=== PATIENT | female | born 1965 | race Caucasian/White ===

== ENCOUNTER 2016-12-08 12:09 | Inpatient (IN) ==
--- NOTE | 2016-12-08 15:24 | CT Report ---
CT of the head without contrast. Indication: Headache. No prior studies. The cerebellar tonsils are low-lying. There is a mild partial empty sella. The ventricles are normal in size and configuration. There is no mass effect, midline shift, or area of acute hemorrhage. No cortical infarcts are seen. The calvarium is intact. Included paranasal sinuses and the mastoid air cells are clear. Impression: Cerebellar ectopia. Mild partial empty sella. The CT exam was performed using one or more of the following dose reduction techniques: Automated exposure control, adjustment of the mA and/or kV according to patient size, or use of iterative reconstruction technique. PROCEDURE INTERPRETED AT [facility] DEPARTMENT OF RADIOLOGY Final Report Signed by: Dr. Rajni Mensah
--- NOTE | 2016-12-08 15:25 | Order Completion Report ---
See report scanned to EMR
--- NOTE | 2016-12-08 15:29 | CT Report ---
CT of the abdomen and pelvis without intravenous or oral contrast. Indication: Generalized abdominal pain. Axial images were obtained with sagittal and coronal 2-D reconstructions. No previous study. The heart is normal in size. There are linear areas of atelectasis present at the lung bases. No pericardial or pleural effusion. The liver size is normal. There is no biliary ductal dilatation. There is no splenic or adrenal enlargement. No hydronephrosis. No nephrolithiasis. There is fatty replacement of the pancreas, with slight indistinctness of the pancreatic head without a discrete mass or enlargement. The pancreatic duct is not dilated. The abdominal aorta has minimal plaque. It is not dilated. The gastric contour is normal. The loops of small intestine are not dilated. There are numerous colonic diverticuli without findings of diverticulitis. No free air or free fluid. The patient is status post hysterectomy. Osseous structures are unremarkable. Impression: Diverticulosis. Basilar atelectasis. Fatty replacement of the pancreas, possible edema associated with the head of the pancreas, correlation with any signs or symptoms of pancreatitis. The CT exam was performed using one or more of the following dose reduction techniques: Automated exposure control, adjustment of the mA and/or kV according to patient size, or use of iterative reconstruction technique. PROCEDURE INTERPRETED AT [facility] DEPARTMENT OF RADIOLOGY Final Report Signed by: Dr. Rajni Mensah
--- NOTE | 2016-12-08 15:30 | XRay Report ---
Portable chest Date: 12/08/2016 Clinical history: Chest tightness Comparison: None Technique: Portable AP sitting chest Findings: The heart is normal in size with uncoiling of the aorta. Calcified granulomata/nodes with minimal atelectasis. Prior anterior cervical fusion. Degenerative changes are noted. Impression: Old healed granulomatous disease and minimal atelectasis. PROCEDURE INTERPRETED AT [facility] DEPARTMENT OF RADIOLOGY Final Report Signed by: Dr. Hedy Whatley
--- NOTE | 2016-12-08 15:32 | Emergency Department Note ---
INora Brittany, am scribing for, and in the presence of, Luz Elena Pickett DO 15: 20. IPiyush Debra, DO, personally performed the services described in this documentation, ascribed by Diane Melendez in my presence, and it is both accurate and complete 531 . Arrival - Arrival Chief Complaint: Urogenital - Female Stated Complaint: poss stroke symptoms,SOB ED Nursing Triage Note: PT WENT TO PCP THIS AM FOR HEMATURIA- PT THEN COMPLAINED OF WEAKNESS TO LEFT ARM AND SHORTNESS OF BREATH THIS AM. PT BELIEVES SHE WAS ANXIOUS ABOUT THE HEMATURIA. SENT HERE BY PCP IN [place]. ONSET OF HEMATURIA THIS AM. Mode of Arrival: Ambulatory Limitations: No Limitations Source: Patient, Family Time Seen by Provider: 12/08/16 14:42 - History of Present Illness HPI Narrative: This is a 51 y/o white female, who presents to the ED with c/o hematuria which started earlier this morning. She notes she was seen at her PCP in [place] earlier today. She notes she was SOB and left arm pain earlier today. She states her PCP thought she was having a CVA or MT, which prompted the ED visit. Pt has no other complaints/pain in the ED at this time. Pt has a PMHx of back/ pain and thyroid disorder. Pt has had a , gynecological surgery, and hysterectomy. Pt denies a family medical hx. Pt denies a social Hx. Onset (ago): hour(s) (Stated earlier this morning) Consistency: constant Severity: moderate Allergies/Adverse Reactions: Allergies Allergy/AdvReac Type Severity Reaction Status Date / Time aspirin Allergy Unknown/Unable Verified 12/08/16 12:21 to obtain Corticosteroids Allergy Unknown/Unable Verified 12/08/16 12:21 (Glucocorticoids) to obtain Erythromycin Base Allergy Unknown/Unable Verified 12/08/16 12:21 to obtain Sulfa (Sulfonamide Allergy Unknown/Unable Verified 12/08/16 12:21 Antibiotics) to obtain Review of System - Review of System Cardiovascular: Present: dyspnea on exertion Genitourinary female: Present: hematuria Medical,Surgical,& Family Hx - Medical History Endocrine: History of: Thyroid Disorder Musculoskeletal: History of: Back/Neck Problems - Surgical History Reproductive Surgeries: Surgical HX of;: Section, Gynecologic Surgery ( TUBAL ), Hysterectomy - Social History Smoking Status: Never smoker Frequency of Alcohol Use: None Type of Drug Use: None Exam Vital Signs: Vital Signs Temperature 98.0 F 12/08/16 15:12 Pulse Rate 67 12/08/16 15:12 Respiratory Rate 18 12/08/16 15:12 Blood Pressure 111/74 12/08/16 15:12 O2 Sat by Pulse Oximetry 98 12/08/16 12:13 - Eye Eye exam: Present: PERRL, EOMI. Absent: nystagmus, miosis, mydriasis - ENT ENT exam: Present: mucous membranes moist - Neck Neck exam: Present: trachea midline. Absent: tenderness - Chest Chest inspection: Present: symmetric chest wall rise. Absent: tenderness - Respiratory Respiratory exam: Present: normal lung sounds bilaterally. Absent: respiratory distress - Cardiovascular Cardiovascular exam: Present: regular rate, normal rhythm, normal heart sounds. Absent: murmur, rubs, gallop, clicks, JVD - Abdominal Exam Abdominal exam: Present: soft, tenderness (RLQ tenderness, Right flank pain ), normal bowel sounds - Rectal Exam Rectal exam: Present: deferred - Extremities Exam Extremities exam: Present: tenderness (Shoulder tenderness), normal capillary refill. Absent: pedal edema, joint swelling, calf tenderness - Back Exam Back exam: Present: full ROM. Absent: tenderness, muscle spasm, rashes - Neurological Exam Neurological exam: Present: alert, oriented X3, CN II-XII intact. Absent: motor sensory deficit - Psychiatric Psychiatric exam: Present: normal affect, normal mood. Absent: depressed, agitated, anxious, flat affect - Skin Skin exam: Present: warm, dry, intact, normal color. Absent: rash, cyanosis, diaphoresis Course Course Narrative: Patient's CT reveals an empty sella partially empty sella. Spoke to Dr. Lerma about patient's symptoms and he thinks that she needs to have an MRI and the CT results do not correlate with her symptoms. She needs to be admitted to hospitalist and he will be consulted. Patient also has a significant urinary tract infection will be treated with Rocephin down in the ER. Hospitalist notified of patient's condition which is stable and will admit patient. - Reevaluation(s) Reevaluation #1: Patient initially was unable to clearly speak this is since resolved and patient is speaking much more clearly and words intelligible Results - Labs CBC & BMP: 12/08/16 15:18 Lab Results: I have reviewed the patients labs - EKG EKG results: interpreted by ADAN POZO, sinus rhythm EKG shows: bradycardia - Diagnostic Findings Procedure: Chest x-ray: report reviewed by me (nothing acute), CT: report reviewed by me (Head CT: Cerebellar ectopia. Mild partial empty sella.) Disposition Clinical Impression: Urinary tract infection, TIA (transient ischemic attack) Case discussed with: patient Disposition: Still a Patient Condition: Stable Time of Disposition: 16:20
[2016-12-08 15:47] LABS: Basophils % 0.4 % (0.0-0.8); Eosinophils # 0.1 10*3/uL (0.0-0.87); Eosinophils % 1.3 % (0.00-10.9); Hemoglobin 12.7 GM/DL (12.0-16.0); Immature Granulocytes % 0.3 %; Immature Granulocytes Absolute 0.02 #; Lymphocytes # 2.4 10*3/uL (1.4-4.0); Lymphocytes % 31.5 % (21.3-54.2); Mean Corpuscular HGB Conc 33.4 GM/DL (32-36); Mean Corpuscular Hemoglobin 31 PG (27-34); Mean Corpuscular Volume 91.1 FL (87-102); Mean Platelet Volume 9.9 FL (9.6-12.0); Monocytes # 0.5 10*3/uL (0.11-0.8); Monocytes % 6.6 % (1.7-12.7); Neutrophils # 4.5 10*3/uL (1.4-7.4); Neutrophils % 59.9 % (38.7-73.9); Platelet Count 207 T/CUMM (130-400); Red Blood Count 4.17 MC/CUMM (3.8-5.5); Red Cell Distribution Width 13.5 % (9.3-17.3); White Blood Count 7.6 T/CUMM (4-12)
[2016-12-08 15:59] LABS: PT Patient Result 10.4 SECS; Partial Thromboplastin Time 24.3 SECS (0-40)
[2016-12-08 16:07] LABS: Apearance,Urine CLOUDY (Clear); Bilirubin,Urine Negative (Negative); Blood, Urine Large mg/dL (Negative); Glucose,Urine (UA) Negative (Negative); Ketones,Urine Negative (Negative); Nitrite,Urine Positive (Negative); Protein,Urine 100 MG/DL; RBC,Urine 674 /HPF (0-4); Urine Color Yellow (Yellow); Urine Specific Gravity 1.012 (1.001-1.035); Urine Urobilinogen < 2.0 EU/DL (0.2-1.0); WBC,Urine 159 /HPF (0-6)
[2016-12-08] MEDS ORDERED: cefTRIAXone 1,000 MG in SODIUM CHLORIDE 0.9% 100 ML IV STA (16:16)
[2016-12-08] MEDS ORDERED: cefTRIAXone 1,000 MG VIAL ONE (16:22)
[2016-12-08 16:24] LABS: Alanine Aminotransferase 18 U/L (13-56); Albumin 3.3 G/DL (3.4-5.0); Alkaline Phosphatase 86 U/L (45-117); Aspartate Amino Transferase 20 U/L (0-37); Blood Urea Nitrogen 18 MG/DL (7-18); Calcium 9.5 MG/DL (8.5-10.1); Glucose 92 MG/DL (74-106); Osmolality,Calculated 284.1 MOS/KG (273-304); Potassium 3.6 MMOL/L (3.5-5.1); Sodium 142 MMOL/L (136-145); Total Protein 7.2 G/DL (6.4-8.3); Troponin I Only < 0.015 NG/ML (0.00-0.045)
[2016-12-08] MEDS ORDERED: ACETAMINOPHEN 325 MG TABLET PO PRN (17:30)
[2016-12-08] MEDS ORDERED: ONDANSETRON 4 MG/2 ML VIAL IV PRN (17:30)
--- NOTE | 2016-12-08 17:58 | Hospitalist History & Physical ---
Assessment and Plan (1) TIA (transient ischemic attack) Status: Acute Assessment and plan: Admit to monitored bed. Numbness/tingling have resolved. Consult neuro. CT showed cerebellar ectopia. MRI ordered. Lipid panel. Frequent neuro checks. Current Visit: Yes (2) Chest pain Status: Acute Assessment and plan: Monitored bed. Serial troponins. Consult cardiology. Order tsh. Echo pending. Supplemental O2. Current Visit: Yes (3) Urinary tract infection Status: Acute Assessment and plan: Positive UA. Start pt on IV antibiotics. Current Visit: Yes (4) History of cervical spinal surgery Status: Chronic Assessment and plan: Cervical surgery in 2013. Has titanium plate in neck. Current Visit: Yes History of Present Illness Chief complaint: shortness of breath/chest pain/possible TIA History of present illness: Ms. Leahy is a 51 year old white female with a past medical history history of GERD, hypothyroidism, back pain, and past surgical history of and hysterectomy. Patient presents to the ED as referral from her PCP office in [place]. Pt. initially presented to the PCP's office for evaluation of hematuria that began earlier today around 8 am. Pt. had a hysterectomy in 2005 and was concerned about the blood because she started it was a large amount and it was coming out in clots. When pt reported to her PCP, she reports that she became short of breath and had intermittent, sharp chest pain with radiation into her neck. Pt. also reported left arm pain associated with numbness and tingling. Pt. does report having a cervical spine surgery in 2013 after a work related injury and some tingling does occur from time to time. Pt. also stated she noted changes to her speech. Pt. was sent to our facility for evaluation. CT performed reveal cerebellar ectopia and mild partial empty sella. CXR was unremarkable. UA revealed moderate leuks and positive nitrates. Pt's case has been discussed with ER physician and hospitalist Dr. Ge. Pt. will be accepted onto our service. There are no home meds available at time of this document creation to review. Allergies Allergy/AdvReac Type Severity Reaction Status Date / Time aspirin Allergy Unknown/Unable Verified 12/08/16 12:21 to obtain Corticosteroids Allergy Unknown/Unable Verified 12/08/16 12:21 (Glucocorticoids) to obtain Erythromycin Base Allergy Unknown/Unable Verified 12/08/16 12:21 to obtain Sulfa (Sulfonamide Allergy Unknown/Unable Verified 12/08/16 12:21 Antibiotics) to obtain Medical,Surgical,& Family Hx - Medical History Endocrine: History of: Thyroid Disorder Musculoskeletal: History of: Back/Neck Problems - Surgical History Reproductive Surgeries: Surgical HX of;: Section, Gynecologic Surgery ( TUBAL ), Hysterectomy - Social History Smoking Status: Former smoker Frequency of Alcohol Use: None Type of Drug Use: None Marital Status: Lives With:: Spouse Functional capacity: independent ambulation 12 point system: reviewed and no additional remarkable complaints except as stated - Cardiovascular Cardiovascular: Present: chest pain at rest, dyspnea, radiating jaw, neck or arm pain. Absent: edema - Respiratory Respiratory: Present: dyspnea. Absent: cough - Genitourinary Genitourinary: Present: hematuria. Absent: urinary frequency Exam - Constitutional Vitals: Period Temp Pulse Resp BP Sys/Mandujano Pulse Ox Last 24 Hr 98.0 F-98.0 F 50-67 18-18 111-121/68-74 98 General appearance: no acute distress, over weight - Head Head exam: Present: normal inspection, normocephalic - Eye Eye exam: Present: EOMI. Absent: scleral icterus Pupils: Present: KIMBERLY. Absent: fixed - Respiratory Respiratory exam: Present: clear to auscultation bilaterally. Absent: wheezes - Cardiovascular Cardiovascular exam: Present: regular rate and rhythm - GI/Abdominal GI/Abdominal exam: Present: normal bowel sounds, soft. Absent: tenderness - Neurological Exam Neurological exam: Present: alert, oriented X3 - Psychiatric Psychiatric exam: Present: normal affect, normal mood - Skin Skin exam: Present: normal color, warm, dry Results - Labs CBC & BMP: 12/08/16 15:18 12/08/16 15:18 Lab Results: I have reviewed the past 24 hour labs
[2016-12-08] MEDS: SODIUM CHLORIDE 0.9% 1,000 ML IV SCH (18:59)
[2016-12-08 19:00] LABS: Risk Ratio 3.81; VLDL CHOLESTEROL 23.8 MG/DL
[2016-12-08] MEDS ORDERED: PIPERACILLIN/TAZOBACTAM 3,375 MG in SODIUM CHLORIDE 0.9% 100 ML IV SCH (19:00)
[2016-12-08 21:55] LABS: Barbiturates Screen,Urine Negative (Negative); Benzodiazepines Screen,Urine Negative (Negative); Cannabinoid Screen,Urine Negative (Negative); Opiate Screen,Urine Negative (Negative); Phencyclidine Screen,Urine Negative (Negative)
[2016-12-08 22:23] LABS: Troponin I Only < 0.015 NG/ML (0.00-0.045)
[2016-12-09 05:28] LABS: Basophils % 0.8 % (0.0-0.8); Eosinophils # 0.1 10*3/uL (0.0-0.87); Eosinophils % 2.8 % (0.00-10.9); Hematocrit 34.1 VOL% (35.7-47.0); Hemoglobin 11.3 GM/DL (12.0-16.0); Immature Granulocytes Absolute 0.04 #; Lymphocytes # 1.4 10*3/uL (1.4-4.0); Lymphocytes % 34.3 % (21.3-54.2); Mean Corpuscular HGB Conc 33.1 GM/DL (32-36); Mean Corpuscular Hemoglobin 30 PG (27-34); Mean Corpuscular Volume 91.7 FL (87-102); Mean Platelet Volume 10.1 FL (9.6-12.0); Monocytes # 0.4 10*3/uL (0.11-0.8); Neutrophils # 2.1 10*3/uL (1.4-7.4); Neutrophils % 51.1 % (38.7-73.9); Platelet Count 168 T/CUMM (130-400); Red Blood Count 3.72 MC/CUMM (3.8-5.5); Red Cell Distribution Width 13.7 % (9.3-17.3)
[2016-12-09 05:59] LABS: Free T4 (Free Thyroxine) 1.02 NG/DL (0.76-1.46); Troponin I Only < 0.015 NG/ML (0.00-0.045)
[2016-12-09 06:12] LABS: Calcium 8.5 MG/DL (8.5-10.1); Osmolality,Calculated 294.4 MOS/KG (273-304); Potassium 4.1 MMOL/L (3.5-5.1); Thyroid Stimulating Hormone 2.24 uIU/ml (0.358-3.74)
[2016-12-09] MEDS: PANTOPRAZOLE 40 MG TABLET PO SCH ×2 (07:48→08:12)
[2016-12-09] MEDS: LEVOTHYROXINE 75 MCG TABLET PO SCH (07:48)
[2016-12-09] MEDS: SODIUM CHLORIDE 0.9% 1,000 ML IV SCH ×2 (07:49→20:37)
--- NOTE | 2016-12-09 10:23 | Magnetic Resonance Report ---
Exam: MR head/brain wo con Date: 12/09/2016 5:30 PM Comparison: CT brain August 08, 2016 Indication: Left arm weakness weakness with abnormal speech and abnormal CT brain Technique:[Multiple acquisitions were obtained including sagittal T1, coronal T2, and axial ADC, diffusion, FLAIR, T2, GRE, and T1 scans without contrast only. Scans were obtained on a 1.5 Vianey magnet.] Findings: The ventricles remain normal in size with no midline displacement. Minimal cerebellar ectopia and partially empty sella. No acute infarction is identified in the diffusion scans. No evidence of hemorrhage, mass, or extracerebral collection. No acute findings in the paranasal sinuses, orbits, temporal bones, or anvik of Lozano. Impression: No acute intracranial pathology identified. Partially empty sella with minimal cerebellar ectopia. PROCEDURE INTERPRETED AT [facility] DEPARTMENT OF RADIOLOGY Final Report Signed by: Dr. Hedy Whatley
--- NOTE | 2016-12-09 12:43 | Hospitalist Progress Note ---
Assessment and Plan (1) Chest pain Status: Acute Assessment and plan: CXR showed an old healed granulomatous disease and minimal atelectasis.Cardiac enzymes are negative. Cardiology is follow. Echo is pending Current Visit: Yes (2) Urinary tract infection Status: Acute Assessment and plan: UC grew gram negative rods Continue with IV antibiotics, follow BC and sensitivities Current Visit: Yes (3) History of cervical spinal surgery Status: Chronic Assessment and plan: most likely causing occasional numbness and tingling of the hands. Appears stable, symptoms have resolved Current Visit: Yes (4) Hypothyroidism Status: Acute Assessment and plan: continue with supplements Current Visit: Yes (5) Empty sella Status: Acute Assessment and plan: MRI showed No acute intracranial pathology identified. Partially empty sella with minimal cerebellar ectopia. Neurology to see Current Visit: Yes Hospitalist: Subjective Interval history: Patient seen in the room with Hobby.MRI of the brain showed no acute intracranial pathology but showed a partially empty sella with minimal cerebellar ectopia. Patient states she is chest pain free and no longer SOB. Her tingling and numbness have also resolved. She was concerned about a some diffuse pinpoint hemorrhagic skin lesions on her abdomen that have been present for years. Exam - Constitutional Vitals: Period Temp Pulse Resp BP Sys/Mandujano Pulse Ox Last 24 Hr 97.4 F-98.0 F 50-72 18-20 90-132/55-81 92-98 General appearance: no acute distress - Head Head exam: Present: normal inspection - Respiratory Respiratory exam: Present: clear to auscultation bilaterally - Cardiovascular Cardiovascular exam: Present: regular rate and rhythm - GI/Abdominal GI/Abdominal exam: Present: normal bowel sounds, other (diffuse pinpoint hemorrhagic skin lesions) - Extremities Exam Extremities exam: Present: normal inspection Results - Labs CBC & BMP: 12/09/16 04:57 12/09/16 04:57
[2016-12-09] MEDS ORDERED: ENOXAPARIN 40 MG/0.4 ML SYRINGE SUBCUT SCH (13:00)
--- NOTE | 2016-12-09 13:29 | Neurology Consult Note ---
History of Present Illness History of present illness: Ms. Leahy is a 51 year old right-handed white with a past medical history history of GERD, hypothyroidism, back pain, history of cervical disc disease status post neck surgery done by Dr. Mcconnell and past surgical history of C- section and hysterectomy. Patient presents to the ED as referral from her PCP office in [place]. Pt. initially presented to the PCP's office for evaluation of hematuria that began earlier yesterday around 8 am. Pt. had a hysterectomy in 2005 and was concerned about the blood because she started it was a large amount and it was coming out in clots. When pt reported to her PCP, she reports that she became short of breath and had intermittent, sharp chest pain with radiation into her neck. Pt. also reported left arm pain associated with numbness and tingling. Pt. does report having a cervical spine surgery in 2013 after a work related injury and some tingling does occur from time to time. MRI of the brain revealed no acute abnormalities, mild cerebellar ectopia and partial empty sella. Patient reported no headaches or vision difficulties. Home Medications Medication Instructions Recorded Confirmed Type Cholecalciferol (Vitamin D3) 1 tablet PO DIRECTED 12/08/16 12/08/16 History [Vitamin D3] Cholecalciferol (Vitamin D3) 1 tablet PO DIRECTED 12/08/16 12/08/16 History [Vitamin D3] Pregabalin [Lyrica] 150 mg PO BID 12/08/16 12/08/16 History Diclofenac Sodium [Diclofenac 100 mg PO DAILY PRN 12/09/16 12/09/16 History Sodium ER] Levothyroxine Tab [Synthroid Tab] 75 mcg PO DAILY@0700 12/09/16 12/09/16 History Allergies Allergy/AdvReac Type Severity Reaction Status Date / Time aspirin Allergy Unknown/Unable Verified 12/08/16 12:21 to obtain Corticosteroids Allergy Unknown/Unable Verified 12/08/16 12:21 (Glucocorticoids) to obtain Erythromycin Base Allergy Unknown/Unable Verified 12/08/16 12:21 to obtain Sulfa (Sulfonamide Allergy Unknown/Unable Verified 12/08/16 12:21 Antibiotics) to obtain 12 point system: reviewed and no additional remarkable complaints except as stated Medical,Surgical,& Family Hx - Medical History Psychological: History of: Anxiety Disorders Neurology: No history of: Brain Aneurysm, Cerebral Hemorrhage, Cerebrovascular Accident , Cerebral Palsy, Dementia, Migraine, Multiple Sclerosis, Parkinson's Disease, Peripheral Neuropathy, Seizures, TIA, Vertigo, Neurologocal Cancer Endocrine: History of: Thyroid Disorder Musculoskeletal: History of: Back/Neck Problems - Surgical History Neurologic Surgeries: Surgical HX of: Neurologic Surgery (cervical fusion) Patient denies: Brain Aneurysm, Cerebral Hemorrhage Reproductive Surgeries: Surgical HX of;: Section, Gynecologic Surgery ( TUBAL ), Hysterectomy - Family History Family History: Reports;: Family Cancer, Family Heart Disease - Social History Smoking Status: Smoker, status unknown Frequency of Alcohol Use: None Type of Drug Use: None Exam - Constitutional Vitals: Period Temp Pulse Resp BP Sys/Mandujano Pulse Ox Last 24 Hr 97.4 F-98.0 F 50-72 18-20 90-132/55-81 92-98 Exam: GENERAL: Patient is in no acute distress. NECK: Neck is supple. There is no JVD. No carotid bruits present. No thyroid masses. CVS: First and second heart sounds are normal. There is no S3 present. Regular rate and rhythm. RESPIRATORY: Lungs are clear to auscultation without any rales or rhonchi. ABDOMEN: Soft and non-tender. Bowel sounds are present. There is no hepatosplenomegaly. EXT: There is no palpable edema. Peripheral pulses are present. Skin: No rashes Central Nervous system: General: Alert, awake and Oriented x 3 Speech: Fluent Comprehension: Intact and normal Facial expressions: Normal Cranial Nerves: CN1/Olfactory: Normal CN II/ Optic: Normal, Visual Taylor unreliable CN III, and : KIMBERLY & EOMI CN V: Normal & intact CN VII: face is symmetric CNVIII: Normal CN XI/X/XI/XII: Intact and Normal Motor: Bulk and Tone is normal. Strength in the right 5/5 Strength in the left 5/5 Sensory: Grossly intact for all the modalities of PP, LT and temp sense Reflexes: 1+ and symmetrical Cerebellar function: Normal finger to nose and heel to douglas testing. Toes: Equivocal Gait: Normal heel to heel and toe to toe and tandem walk. Results - Labs CBC & BMP: 12/09/16 04:57 12/09/16 04:57 Assessment and Plan (1) Numbness of left hand Status: Acute Assessment and plan: This is likely due to the residual of cervical surgery. No evidence of stroke on the MRI. Partial empty sella is asymptomatic but I have recommended her to go back and see Dr. Mcconnell regarding cerebellar ectopia. Patient voiced understanding of everything. No further intervention/recommendations from neuro standpoint Sign off please call as needed Current Visit: Yes
--- NOTE | 2016-12-09 15:33 | Cardiology Consult Note ---
I, Melly Larsen RN, am scribing for, and in the presence of, Antoni Green MD 15:25. Assessment and Plan - Time spent with patient Time spent with patient: Greater than 30 minutes (Due to assessment, planning, documentation, medication review) (1) Numbness of left hand Status: Acute Assessment and plan: The left hand numbness and even the left chest pain, which is better with pressing on her left chest, could be coronary disease, but so far is not for sure. A call also could be muscle skeletal, related her C-spine disease, or GI related Plan/recommendations: an echo/Doppler was ordered-I will review that test. in the Course of her original evaluation her admitting hospitalist deem it necessary to do an echo. It was ordered. I will review it. Aspirin 1 daily, 81 mg-patient says she cannot, she is allergic I SSRI trial-because of some easy anxiety-sertraline 25 mg one half now nightly 7 days then 1 nightly Elevate legs greater than heart, 10 minutes, 2 times per day For chest wall pain will use: Tramadol 50 mg p.o. twice daily, Tylenol 3 25 mg p.o. twice daily. She is already on Lyrica, will continue. She sees a pain doctor, Dr. Joseph Pickett, in [place]. I have encouraged her to continue following up with him to help with management When she is discharged, I would set up for an outpatient stress test/Cardiolite at my office. At this point, he does not need to be done here. Thank you for allowing me to participate in this patient's care I discussed my thoughts and plans with the patient and her .. They understand and agree with the plans. 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 Leahy is a 51 year old female who has never been seen by drier tender. She denies ever having had a heart catheterization or stress testing. She has a history of thyroid problems as well as neck problems. She has had surgery for fusion of cervical disc. Ms. Leahy reported to her primary care doctor yesterday for hematuria. While she was there she became dizzy and short of breath. She believes this was related to her being anxious about the hematuria, but her PCP encouraged her to present to the emergency department for further evaluation. She later developed sharp chest pain on the left side of her chest that she said radiated down her left arm. She rates it a 2 on a scale of 1-10. She said she always has trouble with her speech and yesterday she did note some changes to her speech. She had numbness and tingling down her left arm, she says this does occur from time to time since her cervical spine surgery. She did say yesterday it was worse than normal. She also reports being fatigued recently. Cardiac biomarkers have been negative 3. EKG indicated sinus bradycardia with heart rate of 53. She is scheduled for MRI of the brain today. Ms. Leahy is seen resting in bed no acute distress. She denies any chest pain , shortness of breath, palpitations, or dizziness at this time. She does continue to have some tingling and numbness to her left arm. She has had an echocardiogram as well as MRI of the brain this morning. Image monitor currently shows sinus bradycardia with heart rates in the 50s. CC: Merlyn Barnhart MD - Home Medications and Allergies Home Medications: Home Medications Medication Instructions Recorded Confirmed Type Cholecalciferol (Vitamin D3) 1 tablet PO DIRECTED 12/08/16 12/08/16 History [Vitamin D3] Cholecalciferol (Vitamin D3) 1 tablet PO DIRECTED 12/08/16 12/08/16 History [Vitamin D3] Pregabalin [Lyrica] 150 mg PO BID 12/08/16 12/08/16 History Diclofenac Sodium [Diclofenac 100 mg PO DAILY PRN 12/09/16 12/09/16 History Sodium ER] Levothyroxine Tab [Synthroid Tab] 75 mcg PO DAILY@0700 12/09/16 12/09/16 History Allergies/Adverse Reactions: Allergies Allergy/AdvReac Type Severity Reaction Status Date / Time aspirin Allergy Unknown/Unable Verified 12/08/16 12:21 to obtain Corticosteroids Allergy Unknown/Unable Verified 12/08/16 12:21 (Glucocorticoids) to obtain Erythromycin Base Allergy Unknown/Unable Verified 12/08/16 12:21 to obtain Sulfa (Sulfonamide Allergy Unknown/Unable Verified 12/08/16 12:21 Antibiotics) to obtain - Constitutional Constitutional: Present: as per HPI - EENT Eyes: Present: requires corrective lense. Absent: blurry vision Ears: Absent: decreased hearing, ear pain Nose, mouth and throat: Present: neck pain. Absent: dysphagia, epistaxis, headache(s) - Cardiovascular Cardiovascular: Present: chest pain at rest, dyspnea, dyspnea on exertion, edema , radiating jaw, neck or arm pain, lightheadedness. Absent: diaphoresis, orthopnea - Respiratory Respiratory: Present: dyspnea, dyspnea on exertion. Absent: cough, wheezing - Gastrointestinal Gastrointestinal: Present: constipation. Absent: abdominal pain, diarrhea, hematemesis, hematochezia, melena, nausea, vomiting - Genitourinary Genitourinary: Present: hematuria. Absent: dysuria - Endocrine Endocrine: Present: fatigue Medical,Surgical,& Family Hx - Medical History Psychological: History of: Anxiety Disorders Endocrine: History of: Thyroid Disorder Musculoskeletal: History of: Back/Neck Problems - Surgical History Neurologic Surgeries: Surgical HX of: Neurologic Surgery (cervical fusion) Reproductive Surgeries: Surgical HX of;: Section, Gynecologic Surgery ( TUBAL ), Hysterectomy - Family History Family History: Reports;: Family Cancer, Family Heart Disease - Social History Smoking Status: Former smoker (Quit 20 years ago) Have you smoked in the last 12 months: No Frequency of Alcohol Use: None Type of Drug Use: None Marital Status: Lives With:: Spouse Functional capacity: independent ambulation Physical Examination Vital Signs Temp Pulse Resp BP Pulse Ox 98.0 F 67 18 111/74 98 12/08/16 12:13 12/08/16 12:13 12/08/16 12:13 12/08/16 12:13 12/08/16 12:13 General: Present: Appears Well, No Apparent Distress HEENT: Present: PERRL, Mucus Membranes Moist Neck: Present: Supple Neck, Midline Trachea, No Bruit Cardiac: Present: Reg Rate and Rhythm, No Murmur Lungs: Present: Normal Breath Sounds, No Wheeze, Rales, Rhonchi Neuro: Present: Numbness, Tingling. Absent: Resting Tremor, Essential Tremor Abdomen: Present: Soft, Active Bowel Sounds, Non-Tender. Absent: Distended Skin: Absent: Rash, Suspicious Lesions Extremities: Present: Normal Upper Extr. Pulses, Normal Lower Extr. Pulses, +1 Edema (To bilateral lower extremities) Result/EKG - Labs CBC & BMP: 12/09/16 04:57 12/09/16 04:57 Lab Results: I have reviewed the past 24 hour labs Labs: Laboratory Results - last 24 hr 12/08/16 12/08/16 12/08/16 15:18 15:18 15:18 WBC 7.6 RBC 4.17 Hgb 12.7 Hct 38.0 MCV 91.1 MCH 31 MCHC 33.4 RDW 13.5 Plt Count 207 MPV 9.9 Neut % (Auto) 59.9 Lymph % (Auto) 31.5 [place] % (Auto) 6.6 Eos % (Auto) 1.3 Baso % (Auto) 0.4 Neut # (Auto) 4.5 Lymph # (Auto) 2.4 [place] # (Auto) 0.5 Eos # (Auto) 0.1 Baso # (Auto) 0.0 Immature Gran % 0.3 Nucleated RBC % 0.0 Immature Gran # 0.02 Nucleated RBCs # 0.00 Immature Plt Fraction 0.0 INR 1.0 PT Patient/Control Mix 10.4 Circ Anticoag PTT 24.3 Sodium 142 Potassium 3.6 Chloride 107 Carbon Dioxide 28 Anion Gap 10.6 BUN 18 Creatinine 1.00 GFR Calculation 71 BUN/Creatinine Ratio 18.00 Glucose 92 Hemoglobin A1c Calculated Osmolality 284.1 Calcium 9.5 Magnesium Total Bilirubin 0.40 AST 20 ALT 18 Alkaline Phosphatase 86 Total Creatine Kinase 211 H CK-MB (CK-2) 2.8 Troponin I < 0.015 Total Protein 7.2 Albumin 3.3 L Globulin 3.9 H Albumin/Globulin Ratio 0.8 L Triglycerides Cholesterol LDL Cholesterol VLDL Cholesterol HDL Cholesterol Heart Disease Risk Ratio Lipase Free T4 TSH 3rd Generation Urine Color Urine Appearance Urine pH Ur Specific [place] Urine Protein Urine Glucose (UA) Urine Ketones Urine Blood Urine Nitrate Urine Bilirubin Urine Urobilinogen Urine Leukocytes Urine RBC Urine WBC Urine WBC Clumps Ur Culture Indicated? Urine Opiates Screen Ur Barbiturates Screen Ur Phencyclidine Scrn U Amphetamine/Methamph U Benzodiazepines Scrn U Cocaine Metab Screen U Cannabinoids Screen 12/08/16 12/08/16 12/08/16 15:18 15:18 15:18 WBC RBC Hgb Hct MCV MCH MCHC RDW Plt Count MPV Neut % (Auto) Lymph % (Auto) [place] % (Auto) Eos % (Auto) Baso % (Auto) Neut # (Auto) Lymph # (Auto) [place] # (Auto) Eos # (Auto) Baso # (Auto) Immature Gran % Nucleated RBC % Immature Gran # Nucleated RBCs # Immature Plt Fraction INR PT Patient/Control Mix Circ Anticoag PTT Sodium Potassium Chloride Carbon Dioxide Anion Gap BUN Creatinine GFR Calculation BUN/Creatinine Ratio Glucose Hemoglobin A1c Calculated Osmolality Calcium Magnesium Total Bilirubin AST ALT Alkaline Phosphatase Total Creatine Kinase CK-MB (CK-2) Troponin I Total Protein Albumin Globulin Albumin/Globulin Ratio Triglycerides 119 Cholesterol 183 LDL Cholesterol 110.0 VLDL Cholesterol 23.8 HDL Cholesterol 48 Heart Disease Risk Ratio 3.81 Lipase 205.0 Free T4 TSH 3rd Generation Urine Color Yellow Urine Appearance Cloudy Urine pH 6.0 Ur Specific [place] 1.012 Urine Protein 100 Urine Glucose (UA) Negative Urine Ketones Negative Urine Blood Large Urine Nitrate Positive H Urine Bilirubin Negative Urine Urobilinogen < 2.0 H Urine Leukocytes Moderate H Urine RBC 674 Urine WBC 159 Urine WBC Clumps Many Ur Culture Indicated? Results to follow Urine Opiates Screen Ur Barbiturates Screen Ur Phencyclidine Scrn U Amphetamine/Methamph U Benzodiazepines Scrn U Cocaine Metab Screen U Cannabinoids Screen 12/08/16 12/08/16 12/08/16 15:18 15:18 21:37 WBC RBC Hgb Hct MCV MCH MCHC RDW Plt Count MPV Neut % (Auto) Lymph % (Auto) [place] % (Auto) Eos % (Auto) Baso % (Auto) Neut # (Auto) Lymph # (Auto) [place] # (Auto) Eos # (Auto) Baso # (Auto) Immature Gran % Nucleated RBC % Immature Gran # Nucleated RBCs # Immature Plt Fraction INR PT Patient/Control Mix Circ Anticoag PTT Sodium Potassium Chloride Carbon Dioxide Anion Gap BUN Creatinine GFR Calculation BUN/Creatinine Ratio Glucose Hemoglobin A1c 5.8 Calculated Osmolality Calcium Magnesium Total Bilirubin AST ALT Alkaline Phosphatase Total Creatine Kinase 170 CK-MB (CK-2) 2.4 Troponin I < 0.015 Total Protein Albumin Globulin Albumin/Globulin Ratio Triglycerides Cholesterol LDL Cholesterol VLDL Cholesterol HDL Cholesterol Heart Disease Risk Ratio Lipase Free T4 TSH 3rd Generation Urine Color Urine Appearance Urine pH Ur Specific [place] Urine Protein Urine Glucose (UA) Urine Ketones Urine Blood Urine Nitrate Urine Bilirubin Urine Urobilinogen Urine Leukocytes Urine RBC Urine WBC Urine WBC Clumps Ur Culture Indicated? Urine Opiates Screen Negative Ur Barbiturates Screen Negative Ur Phencyclidine Scrn Negative U Amphetamine/Methamph Negative U Benzodiazepines Scrn Negative U Cocaine Metab Screen Negative U Cannabinoids Screen Negative 12/09/16 12/09/16 12/09/16 04:57 04:57 04:57 WBC 4.0 D RBC 3.72 L Hgb 11.3 L Hct 34.1 L MCV 91.7 MCH 30 MCHC 33.1 RDW 13.7 Plt Count 168 MPV 10.1 Neut % (Auto) 51.1 Lymph % (Auto) 34.3 [place] % (Auto) 10.0 Eos % (Auto) 2.8 Baso % (Auto) 0.8 Neut # (Auto) 2.1 Lymph # (Auto) 1.4 [place] # (Auto) 0.4 Eos # (Auto) 0.1 Baso # (Auto) 0.0 Immature Gran % 1.0 Nucleated RBC % 0.0 Immature Gran # 0.04 Nucleated RBCs # 0.00 Immature Plt Fraction 0.0 INR PT Patient/Control Mix Circ Anticoag PTT Sodium 147 H Potassium 4.1 Chloride 112 H Carbon Dioxide 28 Anion Gap 11.1 BUN 21 H Creatinine 0.80 GFR Calculation 93 BUN/Creatinine Ratio 26.00 H Glucose 94 Hemoglobin A1c Calculated Osmolality 294.4 Calcium 8.5 Magnesium 2.0 Total Bilirubin AST ALT Alkaline Phosphatase Total Creatine Kinase 142 CK-MB (CK-2) 2.2 Troponin I < 0.015 Total Protein Albumin Globulin Albumin/Globulin Ratio Triglycerides Cholesterol LDL Cholesterol VLDL Cholesterol HDL Cholesterol Heart Disease Risk Ratio Lipase Free T4 1.02 TSH 3rd Generation 2.240 Urine Color Urine Appearance Urine pH Ur Specific [place] Urine Protein Urine Glucose (UA) Urine Ketones Urine Blood Urine Nitrate Urine Bilirubin Urine Urobilinogen Urine Leukocytes Urine RBC Urine WBC Urine WBC Clumps Ur Culture Indicated? Urine Opiates Screen Ur Barbiturates Screen Ur Phencyclidine Scrn U Amphetamine/Methamph U Benzodiazepines Scrn U Cocaine Metab Screen U Cannabinoids Screen - Diagnostic Findings Procedure: Chest x-ray: report reviewed by me - EKG EKG results: interpreted by me EKG shows: bradycardia, sinus rhythm Specialty Discharge - Follow Up or Referrals Follow up with: Antoni Green MD [Physician] - (Upon discharge, please set her up for my office at [facility] to have a treadmill test with Cardiolite within the next week or so. And have her see me back about 1 week after the treadmill for a clinic appointment) I, Antoni Green MD, personally performed the services described in this documentation, ascribed by Melly Larsen RN in my presence, and it is both accurate and complete 525 .
--- NOTE | 2016-12-09 17:33 | Order Completion Report ---
See report scanned to EMR
[2016-12-09] MEDS: PREGABALIN 75 MG CAPSULE PO SCH (20:38)
[2016-12-10 05:16] LABS: Basophils % 0.7 % (0.0-0.8); Eosinophils # 0.1 10*3/uL (0.0-0.87); Eosinophils % 1.8 % (0.00-10.9); Hematocrit 33.9 VOL% (35.7-47.0); Hemoglobin 11.2 GM/DL (12.0-16.0); Immature Granulocytes % 0.5 %; Immature Granulocytes Absolute 0.02 #; Lymphocytes # 1.8 10*3/uL (1.4-4.0); Lymphocytes % 40.7 % (21.3-54.2); Mean Corpuscular Hemoglobin 31 PG (27-34); Mean Corpuscular Volume 92.6 FL (87-102); Mean Platelet Volume 9.9 FL (9.6-12.0); Monocytes # 0.3 10*3/uL (0.11-0.8); Monocytes % 7.2 % (1.7-12.7); Neutrophils # 2.2 10*3/uL (1.4-7.4); Neutrophils % 49.1 % (38.7-73.9); Platelet Count 173 T/CUMM (130-400); Red Blood Count 3.66 MC/CUMM (3.8-5.5); White Blood Count 4.4 T/CUMM (4-12)
[2016-12-10 05:52] LABS: Calcium 8.6 MG/DL (8.5-10.1); Osmolality,Calculated 287.8 MOS/KG (273-304); Potassium 4.3 MMOL/L (3.5-5.1)
[2016-12-10] MEDS: LEVOTHYROXINE 75 MCG TABLET PO SCH (06:04)
[2016-12-10] MEDS: PREGABALIN 75 MG CAPSULE PO SCH (09:07)
[2016-12-10] MEDS: PANTOPRAZOLE 40 MG TABLET PO SCH (09:07)
[2016-12-10] MEDS: SODIUM CHLORIDE 0.9% 1,000 ML IV SCH (09:12)
[2016-12-10 09:47] VITALS: BP 104/69
--- NOTE | 2016-12-10 12:24 | Discharge Summary ---
<Sixto Bach - Last Filed: 12/10/16 12:21> Hospital Course - Hospital Course Hospital Course: Ms. Leahy is a 51 year old white female with a past medical history of GERD, hypothyroidism, back pain, and past surgical history of and hysterectomy. Patient presented to the ED on 12/08 as a referral from her PCP office in [place]. Pt. initially presented to the PCP's office for evaluation of hematuria that began earlier today around 8 am. Pt. had a hysterectomy in 2005 and was concerned about the blood because she started it was a large amount and it was coming out in clots. When pt reported to her PCP, she became short of breath and had intermittent, sharp chest pain with radiation into her neck. Pt. also reported left arm pain associated with numbness and tingling. Pt. does report having a cervical spine surgery in 2013 after a work related injury and some tingling does occur from time to time. Pt. also stated she noted changes to her speech. Pt. was sent to our facility for evaluation. CT performed reveal cerebellar ectopia and mild partial empty sella. CXR was unremarkable. UA revealed moderate leuks and positive nitrates. Pt. was admitted for further evaluation of abnormal CT and UTI. Pt. was started on IV fluids and given Rocephin IV for treatment of UTI. She was evaluated by Neurology and Cardiology. Neurology evaluated patient for abnormal CT. MRI was ordered and was unremarkable. Neurology recommended pt. seeing Dr. 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 He felt the numbess was residual from past cervical surgery. Cardiology evaluated pt. EF noted at 60%. They recommended she follow up with her pain doctor in [place]. Chest wall pain suspected to be possibly musculoskeletal or GI related. Also recommended possible start of SSRI for anxiety. Patient will be set up for an outpatient stress test is a later date. Pt.'s condition continued to improve and she is stable for discharge today. Prescription for Levaquin has been written for her E.Coli UTI. she will follow with PCP in 1week. was very unkind to everyone in the hospital and was very controlling to the patient. - Time spent with patient Time with patient DS: Greater than 30 minutes Diagnosis - Discharge Diagnosis (1) TIA (transient ischemic attack) Status: Resolved (2) Chest pain Status: Resolved (3) Urinary tract infection Status: Acute (4) History of cervical spinal surgery Status: Chronic Specialty Discharge - Follow Up or Referrals Follow up with: Antoni Green MD [Physician] - 12/24/16 1:30 pm (Patient will have stress test on 12/17/16@12:45) - Speciality Discharge Instructions Pain Management Instructions: Follow up with Dr. Joseph Pickett, in [place]. Discharge Plan - Discharge Data Disposition: Disch To Home/Self Care Condition at Discharge: Stable Discharge Diet: advance to your usual diet Activity: resume usual activities as tolerated Hygiene: no restrictions Driving: no restrictions - Discharge Medications New Levofloxacin Tab [Levaquin Tab] 750 mg PO DAILY #7 tablet Continue Cholecalciferol (Vitamin D3) [Vitamin D3] 1 tablet PO DIRECTED Cholecalciferol (Vitamin D3) [Vitamin D3] 1 tablet PO DIRECTED Levothyroxine Tab [Synthroid Tab] 75 mcg PO DAILY@0700 Pregabalin [Lyrica] 150 mg PO BID Diclofenac Sodium [Diclofenac Sodium ER] 100 mg PO DAILY PRN PRN Reason: Pain - Follow Up or Referral Follow Up: Antoni Green MD [Physician] - 12/24/16 1:30 pm (Patient will have stress test on 12/17/16@12:45) - Forms/Instructions Exam - Constitutional Vitals: Period Temp Pulse Resp BP Sys/Mandujano Pulse Ox Last 24 Hr 96.5 F-98.0 F 50-90 16-20 96-127/64-74 94-99 General appearance: no acute distress, over weight - Head Head exam: Present: normal inspection, normocephalic - Eye Eye exam: Present: EOMI Pupils: Present: KIMBERLY - Respiratory Respiratory exam: Present: clear to auscultation bilaterally. Absent: wheezes - Cardiovascular Cardiovascular exam: Present: regular rate and rhythm - GI/Abdominal GI/Abdominal exam: Present: normal bowel sounds, soft. Absent: tenderness - Extremities Exam Extremities exam: Present: normal inspection, normal capillary refill, full ROM. Absent: edema - Neurological Exam Neurological exam: Present: alert, oriented X3 - Psychiatric Psychiatric exam: Present: anxious (pt's was being verbally aggressive to her on phone during encounter) - Skin Skin exam: Present: normal color, warm, dry Discharge Results Procedures and tests throughout hospitalization: Pending Orders 10/09/17 Urine Culture Routine 10/10/17 10:21 Blood Culture Routine Labs on day of discharge: Labs from last 24 hours 12/10/16 12/10/16 12/09/16 04:52 04:52 13:04 WBC 4.4 RBC 3.66 L Hgb 11.2 L Hct 33.9 L MCV 92.6 MCH 31 MCHC 33.0 RDW 14.0 Plt Count 173 MPV 9.9 Neut % (Auto) 49.1 Lymph % (Auto) 40.7 [place] % (Auto) 7.2 Eos % (Auto) 1.8 Baso % (Auto) 0.7 Neut # (Auto) 2.2 Lymph # (Auto) 1.8 [place] # (Auto) 0.3 Eos # (Auto) 0.1 Baso # (Auto) 0.0 Immature Gran % 0.5 Nucleated RBC % 0.0 Immature Gran # 0.02 Nucleated RBCs # 0.00 Immature Plt Fraction 0.0 D-Dimer, Quantitative 0.6 Sodium 144 Potassium 4.3 Chloride 111 H Carbon Dioxide 26 Anion Gap 11.3 BUN 19 H Creatinine 0.70 GFR Calculation 109 BUN/Creatinine Ratio 27.00 H Glucose 99 Calculated Osmolality 287.8 Calcium 8.6 Preliminary micro results at discharge 12/08/16 Unknown Urine Culture - Preliminary Urine,Voided Escherichia coli 12/09/16 10:21 Blood Culture - Preliminary Blood No growth at 1 day 12/09/16 10:19 Blood Culture - Preliminary Blood No growth at 1 day DS: Provider Date of admission: 12/08/16 16:56 Primary care physician: . No PCP Attending physician on admission: Merlyn Barnhart MD Consults: 12/08/16 17:30 Consult to Physician [CONS] Routine Comment: abnormal CT Consulting Provider: Harmeet Lerma Person Notified: Sh[place] Date Notified: 12/09/16 Time Notified: 08:37 12/08/16 18:46 Consult to Physician [CONS] Routine Comment: chest pain Consulting Provider: Gene Markham Person Notified: Yobany Date Notified: 12/09/16 Time Notified: 08:11 12/09/16 09:22 Consult to Occupational Therapy [CONS] Routine Reason for Occupational Therapy: Evaluate and Treat Consult to Physical Therapy [CONS] Routine Reason for Physical Therapy: Evaluate and Treat Discharging clinician: Sixto Bach NP Expected date of discharge: 12/10/16 <Merlyn Barnhart - Last Filed: 12/10/16 12:53> Diagnosis - Discharge Diagnosis (1) Chest pain Status: Resolved (2) Urinary tract infection Status: Acute (3) History of cervical spinal surgery Status: Chronic (4) Hypothyroidism Status: Chronic (5) Empty sella Status: Acute Discharge Plan - Forms/Instructions Additional Discharge Instructions: Follow with PCP in 1week
--- NOTE | 2016-12-11 14:44 | Cardiology Progress Note ---
I, Melly Larsen RN, am scribing for, and in the presence of, Antoni Green MD 14:43. Assessment and Plan (1) Numbness of left hand Status: Acute Assessment and plan: Initial assessment and plan December 09, 2016: The left hand numbness and even the left chest pain, which is better with pressing on her left chest, could be coronary disease, but so far is not for sure. A call also could be muscle skeletal, related her C-spine disease, or GI related Plan/recommendations: an echo/Doppler was ordered-I will review that test. in the Course of her original evaluation her admitting hospitalist deem it necessary to do an echo. It was ordered. I will review it. Aspirin 1 daily, 81 mg-patient says she cannot, she is allergic I SSRI trial-because of some easy anxiety-sertraline 25 mg one half now nightly 7 days then 1 nightly Elevate legs greater than heart, 10 minutes, 2 times per day For chest wall pain will use: Tramadol 50 mg p.o. twice daily, Tylenol 3 25 mg p.o. twice daily. She is already on Lyrica, will continue. She sees a pain doctor, Dr. Joseph Pickett, in [place]. I have encouraged her to continue following up with him to help with management When she is discharged, I would set up for an outpatient stress test/Cardiolite at my office. At this point, he does not need to be done here. Assessment and plan December 10, 2016: Her neck and arm pain seems better. Doing physical therapy. May have had a CVA. Possibly home later today or tomorrow My plan would be to have her get an outpatient treadmill/Cardiolite and about a week. I will then see her back in clinic in about 2 weeks and discuss with her about the results and reassess how she is doing. 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 Leahy is a 51 year old female who has never been seen by technical inspector. She denies ever having had a heart catheterization or stress testing. She has a history of thyroid problems as well as neck problems. She has had surgery for fusion of cervical disc. Ms. Leahy reported to her primary care doctor December 08 for hematuria. While she was there she became dizzy and short of breath. She believes this was related to her being anxious about the hematuria, but her PCP encouraged her to present to the emergency department for further evaluation. She later developed sharp chest pain on the left side of her chest that she said radiated down her left arm. She rates it a 2 on a scale of 1-10. She said she always has trouble with her speech and yesterday she did note some changes to her speech. She had numbness and tingling down her left arm, she says this does occur from time to time since her cervical spine surgery. She did say yesterday it was worse than normal. She also reports being fatigued recently. Cardiac biomarkers have been negative 3. EKG indicated sinus bradycardia with heart rate of 53. MRI of the brain was without any acute intracranial pathology. December 10, 2016: Ms. Leahy is seen resting in bed in no acute distress. She denies any chest pain or shortness of breath. She does continue to have numbness and tingling on her left arm, but she states this is about her baseline. Echocardiogram in yesterday with ejection fraction of 60%. Vital signs been stable. Labs are unremarkable. We will schedule him for outpatient stress test in 1 week with follow-up to see Dr. Green office the following week. Review of systems: Cardiovascular: Denies chest pain. Respiratory: Denies shortness of breath. Neurological: Awake, alert, and oriented, continues to have numbness and tingling in her left arm which she says is chronic. Exam (Progress Note) - Constitutional Vitals: Period Temp Pulse Resp BP Sys/Mandujano Pulse Ox Last 24 Hr 96.5 F-98.0 F 50-90 16-20 96-132/64-81 94-99 Exam: General: Present: Appears Well, No Apparent Distress HEENT: Present: PERRL, Mucus Membranes Moist Neck: Present: Supple Neck, Midline Trachea, No Bruit Cardiac: Present: Reg Rate and Rhythm, No Murmur Lungs: Present: Normal Breath Sounds, No Wheeze, Rales, Rhonchi Neuro: Present: Numbness, Tingling. Absent: Resting Tremor, Essential Tremor Abdomen: Present: Soft, Active Bowel Sounds, Non-Tender. Absent: Distended Skin: Absent: Rash, Suspicious Lesions Extremities: Present: Normal Upper Extr. Pulses, Normal Lower Extr. Pulses, +1 Edema (To bilateral lower extremities) Result/EKG - Labs CBC & BMP: 12/10/16 04:52 12/10/16 04:52 Lab Results: I have reviewed the past 24 hour labs Labs: Laboratory Results - last 24 hr 12/09/16 12/10/16 12/10/16 13:04 04:52 04:52 WBC 4.4 RBC 3.66 L Hgb 11.2 L Hct 33.9 L MCV 92.6 MCH 31 MCHC 33.0 RDW 14.0 Plt Count 173 MPV 9.9 Neut % (Auto) 49.1 Lymph % (Auto) 40.7 H[place]eth % (Auto) 7.2 Eos % (Auto) 1.8 Baso % (Auto) 0.7 Neut # (Auto) 2.2 Lymph # (Auto) 1.8 [place] # (Auto) 0.3 Eos # (Auto) 0.1 Baso # (Auto) 0.0 Immature Gran % 0.5 Nucleated RBC % 0.0 Immature Gran # 0.02 Nucleated RBCs # 0.00 Immature Plt Fraction 0.0 D-Dimer, Quantitative 0.6 Sodium 144 Potassium 4.3 Chloride 111 H Carbon Dioxide 26 Anion Gap 11.3 BUN 19 H Creatinine 0.70 GFR Calculation 109 BUN/Creatinine Ratio 27.00 H Glucose 99 Calculated Osmolality 287.8 Calcium 8.6 - Diagnostic Findings Procedure: Chest x-ray: report reviewed by me Specialty Discharge - Follow Up or Referrals Follow up with: Antoni Green MD [Physician] - 12/24/16 1:30 pm (Patient will have stress test on 12/17/16@12:45) I, Antoni Green MD, personally performed the services described in this documentation, ascribed by Melly Larsen RN in my presence, and it is both accurate and complete [id number] .
== END 2016-12-10 13:50 | disposition home or self-care (01) | DRG 690 ==
LOC: N.ED 12:09 → N.EDINP 16:56 → N.5E 18:28
PROVIDERS: ADMIT Internal Medicine; ATTEND Internal Medicine